=== PATIENT | female | born 1985 | race Caucasian/White ===

== ENCOUNTER → 2017-12-07 | Outpatient (REF) | payer OTHER ==
[2017-12-09 14:16] LABS: HPV HYBRID CAPTURE II Negative (Negative)
== END ==
LOC: M LAB REF 18:48
DX: Z01.419 Encounter for gynecological examination (general) (routine) without abnormal findings (principal)

== ENCOUNTER → 2018-12-06 | Outpatient (REF) | payer OTHER ==
[2018-12-06 17:12] LABS: URINE PREG TEST NEGATIVE (NEGATIVE)
== END ==
LOC: M SFHCPLAZ 15:53
PROVIDERS: ATTEND Nurse Practitioner Adult Health
DX: R19.4 Change in bowel habit (principal)

== ENCOUNTER → 2019-01-17 | Outpatient (REF) | payer OTHER ==
[2019-01-17 12:03] LABS: BASO % 0.4 % (0.0-1.0); EOS % 0.5 % (0.0-3.0); HEMATOCRIT 36.4 % (36.0-47.0); HEMOGLOBIN 12.6 g/dl (12.0-15.5); LYMPH # 1.8 10^3/uL (1.5-4.5); LYMPH % 21.9 % (24.0-44.0); MEAN CORPUSCULAR HEMOGLOBIN 30.5 pg (27.0-33.0); MEAN CORPUSCULAR HGB CONC 34.6 g/dl (32.0-36.5); MEAN CORPUSCULAR VOLUME 88.1 fl (80.0-96.0); MONO # 0.6 10^3/uL (0.0-0.8); MONO % 7.5 % (0.0-5.0); NEUTROPHILS # 5.7 10^3/uL (1.8-7.7); NEUTROPHILS % 69.3 % (36.0-66.0); PLATELET COUNT, AUTOMATED 265 10^3/uL (150-450); RED BLOOD COUNT 4.13 10^6/uL (4.00-5.40); WHITE BLOOD COUNT 8.3 10^3/uL (4.0-10.0)
[2019-01-17 12:52] LABS: HEPATITIS C VIRUS ABY INDEX 0.1 INDEX (<0.8)
[2019-01-17 12:53] LABS: HIV 1&2 SCREEN CENTAUR NEGATIVE (NEGATIVE); RUBELLA IgG QUALITATIVE IMMUNE (IMMUNE)
[2019-01-17 13:29] LABS: CHLAMYDIA DNA AMPLIFICATION NEGATIVE (NEGATIVE); GC DNA AMPLIFICATION NEGATIVE (NEGATIVE)
== END ==
LOC: M LABDRAW1 11:35
PROVIDERS: ATTEND Advanced Practice Midwife
DX: Z34.00 Encounter for supervision of normal first pregnancy, unspecified trimester (principal); Z3A.10 10 weeks gestation of pregnancy

== ENCOUNTER → 2019-05-02 | Outpatient (REF) | payer OTHER | LOC: M LAB REF 12:55 | PROVIDERS: ATTEND Advanced Practice Midwife | DX: Z34.02 Encounter for supervision of normal first pregnancy, second trimester (principal); Z3A.00 Weeks of gestation of pregnancy not specified ==

== ENCOUNTER → 2019-05-16 | Outpatient (CLI) | payer OTHER ==
[2019-05-16 09:48] LABS: BASO % 0.3 % (0.0-1.0); EOS # 0.1 10^3/uL (0.0-0.50); EOS % 0.4 % (0.0-3.0); HEMATOCRIT 32.8 % (36.0-47.0); LYMPH % 18.2 % (24.0-44.0); MEAN CORPUSCULAR HEMOGLOBIN 30.3 pg (27.0-33.0); MEAN CORPUSCULAR HGB CONC 33.5 g/dl (32.0-36.5); MEAN CORPUSCULAR VOLUME 90.4 fl (80.0-96.0); MONO # 0.7 10^3/uL (0.0-0.8); NEUTROPHILS # 8.2 10^3/uL (1.8-7.7); NEUTROPHILS % 73.9 % (36.0-66.0); PLATELET COUNT, AUTOMATED 241 10^3/uL (150-450); RED BLOOD COUNT 3.63 10^6/uL (4.00-5.40); WHITE BLOOD COUNT 11.2 10^3/uL (4.0-10.0)
== END ==
LOC: M SMT 07:54
PROVIDERS: ATTEND Advanced Practice Midwife
DX: Z34.82 Encounter for supervision of other normal pregnancy, second trimester (principal); Z3A.00 Weeks of gestation of pregnancy not specified

== ENCOUNTER → 2019-07-25 | Outpatient (CLI) | payer OTHER ==
[2019-07-25 17:53] LABS: HEMATOCRIT 35.2 % (36.0-47.0); HEMOGLOBIN 11.8 g/dl (12.0-15.5); MEAN CORPUSCULAR HEMOGLOBIN 30.7 pg (27.0-33.0); MEAN CORPUSCULAR HGB CONC 33.5 g/dl (32.0-36.5); MEAN CORPUSCULAR VOLUME 91.7 fl (80.0-96.0); PLATELET COUNT, AUTOMATED 213 10^3/uL (150-450); RED BLOOD COUNT 3.84 10^6/uL (4.00-5.40); WHITE BLOOD COUNT 14.5 10^3/uL (4.0-10.0)
[2019-07-25 18:15] LABS: ALT/SGPT 35 U/L (12-78); BILIRUBIN,TOTAL 0.1 MG/DL (0.2-1.0); GLOMERULAR FILTRATION RATE > 60.0 (>60); LDH LACTATE DEHYDROGENASE 174 U/L (84-246); TOTAL PROTEIN,RANDOM URINE 26.4 MG/DL (0.0-12.0); URIC ACID 3.3 MG/DL (2.6-6.0)
[2019-07-25 19:04] LABS: HIV 1&2 SCREEN CENTAUR NEGATIVE (NEGATIVE)
== END ==
LOC: M LAB 17:10
PROVIDERS: ATTEND Advanced Practice Midwife
DX: O16.3 Unspecified maternal hypertension, third trimester (principal); Z3A.00 Weeks of gestation of pregnancy not specified

== ENCOUNTER → 2019-07-25 | Outpatient (REF) | payer OTHER | LOC: M LAB REF 13:20 | PROVIDERS: ATTEND Advanced Practice Midwife | DX: Z36.85 Encounter for antenatal screening for Streptococcus B (principal) ==

== ENCOUNTER → 2019-07-28 | Outpatient (CLI) | payer OTHER ==
--- NOTE | 2019-07-29 08:29 | REP ---
Clinical: Growth evaluation Comparison: 03/16/2019 . Findings: Examination demonstrates a single live intrauterine in cephalic presentation. motion is identified by technologist. Placenta is noted anterior and grade I I without evidence for placenta previa or abruption. Amniotic fluid volume is normal. No evidence for nuchal cord. Gestational age by LMP 37 weeks 1 day with DEXTER 08/17/2019 . Gestational age by current measurements 35 weeks 4 days with DEXTER 08/28/2019 . FHR equals 136 beats per minute. BPD 9.1 cm 36 weeks 5 days HC 31.8 cm 35 weeks 5 days AC 33.5 cm 37 weeks 3 days FL 6.5 cm 33 weeks 5 days (less than 5th percentile) HL 5.9 cm 34 weeks 2 days ( less than 5th percentile) HC/AC ratio 0.95 Estimated weight 2888 grams ( 40th percentile). Amniotic fluid index: 18.0 cm Umbilical cord SD ratio: 2.24 Impression: 1. Single live advanced gestation in cephalic presentation. 2. Extremity measurements fall below 5th percentile. 3. Estimated weight remains within normal range. Electronically Signed by Andres Hollins MD 07/29/2019 08:20 A
== END ==
LOC: M RAD 16:50
PROVIDERS: ATTEND Advanced Practice Midwife
DX: O16.3 Unspecified maternal hypertension, third trimester (principal)

== ENCOUNTER 2019-09-08 03:28 | Emergency (ER) | payer OTHER ==
[~2019-09-08] VITALS: Ht 162.6 cm; Wt 84.4 kg
[~2019-09-08 03:28] MED LIST: PRENTAB9 PO
[2019-09-08] MEDS ORDERED: CVS50CAP PO (04:14)
[2019-09-08] MEDS ORDERED: BIOT1CAP2 PO (04:14)
[2019-09-08 04:21] LABS: BASO # 0.1 10^3/uL (0.0-0.2); BASO % 0.5 % (0.0-1.0); EOS # 0.2 10^3/uL (0.0-0.5); HEMATOCRIT 36.8 % (36.0-47.0); HEMOGLOBIN 12.1 g/dl (12.0-15.5); LYMPH # 2.6 10^3/uL (1.5-5.0); LYMPH % 26.4 % (24.0-44.0); MEAN CORPUSCULAR HGB CONC 32.9 g/dl (32.0-36.5); MEAN CORPUSCULAR VOLUME 88.2 fl (80.0-96.0); MONO # 0.7 10^3/uL (0.0-0.8); NEUTROPHILS # 6.1 10^3/uL (1.5-8.5); NEUTROPHILS % 63.4 % (36.0-66.0); PLATELET COUNT, AUTOMATED 275 10^3/uL (150-450); RED BLOOD COUNT 4.17 10^6/uL (4.00-5.40); WHITE BLOOD COUNT 9.7 10^3/uL (4.0-10.0)
[2019-09-08] MEDS ORDERED: GI COCKTAIL 50ML BTL(HYOSCYAMINE/MAALOX/LIDOCAINE VISCOUS)(1:3:1) PO ONE (04:45)
[2019-09-08 05:00] LABS: BLOOD UREA NITROGEN 13 MG/DL (7-18); CALCIUM LEVEL 8.9 MG/DL (8.5-10.1); CARBON DIOXIDE LEVEL 26 MEQ/L (21-32); CHLORIDE LEVEL 105 MEQ/L (98-107); CK-MB VALUE MASS < 1.0 NG/ML (<3.6); CPK CREATINE PHOSPHOKINASE 78 U/L (26-192); CREATININE FOR GFR 0.84 MG/DL (0.55-1.30); GLOMERULAR FILTRATION RATE > 60.0 (>60); GLUCOSE, FASTING 97 MG/DL (70-100); MB/CK RELATIVE INDEX 1.28 (< OR =4); POTASSIUM SERUM 3.4 MEQ/L (3.5-5.1); SODIUM LEVEL 143 MEQ/L (136-145); TROPONIN I < 0.02 NG/ML (< 0.10)
[2019-09-08 05:45] VITALS: BP 132/87
[2019-09-08] MEDS ORDERED: OMEP40CA97 PO (05:52)
[2019-09-08] MEDS ORDERED: OMEPRAZOLE 20 MG CAP PO ONE (07:00)
--- NOTE | 2019-09-08 08:05 | REP ---
Portable chest x-ray: Single view. History: Chest pain. Findings: EKG monitoring electrodes overlie the chest. The heart is not enlarged. Lungs are clear and well inflated. Pleural angles are sharp. Pulmonary vasculature is not increased. No significant bony abnormality is seen. Impression: Negative portable chest x-ray. Electronically Signed by Frankie Young MD 09/08/2019 07:57 A
--- NOTE | 2019-09-08 22:03 | ECGEPIP ---
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
== END 2019-09-08 06:22 | disposition home or self-care (01) ==
LOC: M ED 03:28
DX: K21.9 Gastro-esophageal reflux disease without esophagitis (principal); Z79.899 Other long term (current) drug therapy

== ENCOUNTER → 2019-09-19 | Outpatient (CLI) | payer OTHER ==
[~2019-09-19] MED LIST changes: +BIOT1CAP2 PO; +CVS50CAP PO; +OMEP40CA97 PO
--- NOTE | 2019-09-19 08:31 | REP ---
Clinical: Gastroesophageal reflux disease. Abdominal pain. Technique: Real time harris scale ultrasound examination using curved array transducer. Findings: Liver and pancreas are normal in contour, size, echogenicity without focal hepatic or pancreatic lesion identified. Gallbladder demonstrates multiple small mobile gallstones without wall thickening or pericholecystic fluid. No biliary ductal dilatation is appreciated and the common bile duct measures 4.0 mm diameter. Right kidney is normal in reniform shape without hydronephrosis and measures 11.0 x 4.8 x 4.7 cm. Abdominal aorta normal. No ascites. Impression: Cholelithiasis. Electronically Signed by Andres Hollins MD 09/19/2019 08:23 A
== END ==
LOC: M RAD 06:38
PROVIDERS: ATTEND Nurse Practitioner Adult Health
DX: K80.00 Calculus of gallbladder with acute cholecystitis without obstruction (principal)

== ENCOUNTER 2019-10-02 00:27 | Emergency (ER) | payer OTHER ==
[~2019-10-02] VITALS: Ht 157.5 cm; Wt 83.6 kg
[2019-10-02 01:14] LABS: BASO # 0.1 10^3/uL (0.0-0.2); BASO % 0.6 % (0.0-1.0); EOS # 0.1 10^3/uL (0.0-0.5); EOS % 1.1 % (0.0-3.0); HEMATOCRIT 39.7 % (36.0-47.0); HEMOGLOBIN 12.7 g/dl (12.0-15.5); LYMPH # 3.1 10^3/uL (1.5-5.0); MEAN CORPUSCULAR HEMOGLOBIN 28.2 pg (27.0-33.0); MONO # 0.8 10^3/uL (0.0-0.8); MONO % 7.9 % (0.0-5.0); NEUTROPHILS # 6.2 10^3/uL (1.5-8.5); NEUTROPHILS % 59.5 % (36.0-66.0); PLATELET COUNT, AUTOMATED 308 10^3/uL (150-450); RED BLOOD COUNT 4.51 10^6/uL (4.00-5.40); WHITE BLOOD COUNT 10.3 10^3/uL (4.0-10.0)
[2019-10-02 01:39] LABS: ALBUMIN 3.5 GM/DL (3.2-5.2); ALT/SGPT 47 U/L (12-78); BILIRUBIN,DIRECT < 0.1 MG/DL (0.0-0.2); BILIRUBIN,TOTAL 0.2 MG/DL (0.2-1.0); BLOOD UREA NITROGEN 14 MG/DL (7-18); CARBON DIOXIDE LEVEL 27 MEQ/L (21-32); CHLORIDE LEVEL 108 MEQ/L (98-107); CREATININE FOR GFR 0.85 MG/DL (0.55-1.30); GLOMERULAR FILTRATION RATE > 60.0 (>60); GLUCOSE, FASTING 85 MG/DL (70-100); LIPASE 227 U/L (73-393); POTASSIUM SERUM 4.1 MEQ/L (3.5-5.1); SODIUM LEVEL 143 MEQ/L (136-145); TOTAL PROTEIN 7.2 GM/DL (6.4-8.2)
[2019-10-02] MEDS ORDERED: MORPHINE 4 MG/ML 1ML VIAL/SYRINGE (J2270) IV ONE (01:45)
[2019-10-02] MEDS ORDERED: ONDANSETRON 4MG/2ML VIAL (J2405) As Ordered ONE (01:51)
[2019-10-02] MEDS ORDERED: ONDANSETRON 4MG/2ML VIAL (J2405) IV ONE (02:00)
--- NOTE | 2019-10-02 02:31 | REPVR ---
PROCEDURE INFORMATION: Exam: US Abdomen Limited, Right Upper Quadrant Exam date and time: 10/02/2019 2:13 AM Age: 34 years old Clinical indication: Abdominal pain; Epigastric; Additional info: Biliary eval TECHNIQUE: Imaging protocol: Real-time ultrasound of the abdomen with image documentation. Examination was focused on the right upper quadrant. COMPARISON: GALLBLADDER US 09/19/2019 6:43 AM FINDINGS: Liver: The liver demonstrates no focal defects. Gallbladder: The gallbladder demonstrates no wall thickening measuring 2 mm. There are small gallstones and a positive sono Martinez's sign. Common bile duct: The CBD measures 4 mm. Pancreas: The pancreas is normal. Right kidney: The right kidney measures 12.4 cm with no hydronephrosis. There is a right renal cyst measuring up to 14 mm. IMPRESSION: 1. Small gallstones and gallbladder with a positive sono Martinez's sign. There is no gallbladder wall thickening. 2. Otherwise negative right upper quadrant sonogram. Electronically signed by: Semaj Pedersen On 10/02/2019 02:30:38 AM
[2019-10-02 05:00] VITALS: BP 113/71
[2019-10-02] MEDS ORDERED: NORCO 5/325MG TABLET (BULK FOR ED) PO ONE (06:30)
[2019-10-02] MEDS ORDERED: HYDR-4571 PO (06:31)
== END 2019-10-02 06:41 | disposition home or self-care (01) ==
LOC: M ED 00:27
DX: K80.20 Calculus of gallbladder without cholecystitis without obstruction (principal); Z79.899 Other long term (current) drug therapy
CPT/HCPCS: 76705; 80048; 80076; 83690; 85025; 96374; 96375; 99284; J2270; J2405

== ENCOUNTER 2019-10-21 10:29 | Day surgery (SDC) | payer OTHER ==
[~2019-10-21] VITALS: Ht 160 cm; Wt 82.0 kg
[~2019-10-21 10:29] MED LIST changes: +AMPICILLIN SOD/SULBACTAM SOD 3 GM in D5W MINI-BAG PLUS 100 ML IV ONE; +HYDR-4571 PO; +LR 1,000 ML IV ONE
[2019-10-21] MEDS ORDERED: LIDOCAINE 1% SDV INJ 30 ML VIAL As Ordered ONE (11:41)
[2019-10-21] MEDS ORDERED: BUPIVACAINE HCL 0.25% 30 ML VIAL As Ordered ONE (11:41)
[2019-10-21] MEDS ORDERED: fentaNYL 250 MCG/5 ML INJECTION (J3010) As Ordered ONE (12:10)
[2019-10-21] MEDS ORDERED: ePHEDrine SULFATE 25 MG/5 ML(5MG/ML) SYRINGE As Ordered ONE (12:10)
[2019-10-21] MEDS ORDERED: ROCURONIUM BROMIDE 50 MG/5 ML VIAL As Ordered ONE (12:10)
[2019-10-21] MEDS ORDERED: dexameTHASONE 4 MG/ML 1ML VIAL (J1100) As Ordered ONE (12:10)
[2019-10-21] MEDS ORDERED: LIDOCAINE 2% INJ 100 MG/5 ML SDV (FOR ANES.) As Ordered ONE (12:10)
[2019-10-21] MEDS ORDERED: propofoL 200 MG/20 ML VIAL As Ordered ONE (12:10)
[2019-10-21] MEDS ORDERED: MIDAZOLAM INJ 2 MG/2 ML VIAL (J2250) As Ordered ONE (12:10)
[2019-10-21] MEDS ORDERED: KETOROLAC 60 MG/2 ML VIAL (J1885) As Ordered ONE (12:10)
[2019-10-21] MEDS ORDERED: SUGAMMADEX SODIUM 500 MG/5 ML VIAL (BRIDION) As Ordered ONE (12:10)
[2019-10-21] MEDS ORDERED: ONDANSETRON 4MG/2ML VIAL (J2405) As Ordered ONE (12:10)
[2019-10-21] MEDS ORDERED: DESFLURANE 240 ML INHALANT As Ordered ONE (12:25)
[2019-10-21] MEDS ORDERED: PERCOCET 5MG/325MG TAB As Ordered ONE (13:38)
[2019-10-21] MEDS ORDERED: PERCOCET 5MG/325MG TAB PO PRN (13:45)
[2019-10-21] MEDS ORDERED: LR 1,000 ML IV SCH (13:45)
[2019-10-21] MEDS ORDERED: NORCO, ANEXSIA 5/325MG TABLET (HYDROcodone/ACETAMINOPHEN) PO PRN (13:45)
[2019-10-21] MEDS ORDERED: ONDANSETRON 4MG/2ML VIAL (J2405) IV PRN ×2 (13:45)
[2019-10-21] MEDS ORDERED: METOCLOPRAMIDE INJ 10MG/2ML VIAL (J2765) IV PRN (13:45)
[2019-10-21] MEDS ORDERED: fentaNYL 100 MCG/2 ML INJECTION (J3010) IV PRN (13:45)
[2019-10-21] MEDS ORDERED: KETOROLAC 30 MG/ML VIAL (J1885) IV PRN (13:45)
[2019-10-21] MEDS ORDERED: HYDROMORPHONE HCL 0.5 MG/ 0.5 ML SYRINGE (J1170 PER 1) IV PRN (13:45)
[2019-10-21 14:52] VITALS: BP 125/69
--- NOTE | 2019-11-08 10:45 | ROOPDOC ---
[facility] Report Of Operation Report of Operation DATE OF PROCEDURE: 10/21/19 PREPROCEDURE DIAGNOSES: Cholelithiasis, biliary colic. POSTPROCEDURE DIAGNOSES: Cholelithiasis. PROCEDURE: Laparoscopic cholecystectomy. SURGEON: John Black MD CUSTOMER ACCOUNT MANAGER: ANESTHESIA: Gen. anesthesia. ESTIMATED BLOOD LOSS: Approximately 10 mL. COMPLICATIONS: None. SPECIMEN: Gallbladder PROCEDURE NOTE: Moderately distended but relatively thin-walled gallbladder, multiple stones and said the gallbladder free floating.. DESCRIPTION OF PROCEDURE: Patient was given a dose Unasyn 3 g IV preoperatively for prophylaxis. She was brought to the operating room, laid supine on the table, compression boots placed for DVT prophylaxis. General endotracheal anesthesia started. Her abdomen then prepped and draped in usual sterile fashion. Surgical timeout was performed prior to starting surgery. Entry into the abdomen done through an incision above the umbilicus. A Veress needle was inserted with a controlled fashion. CO2 insufflation started to pressure 15 mmHg. Using the same incision a 5 mm Visiport was placed under d irect vision laparoscope. The area underneath the insertion site was inspected and no injury found. She was then placed in steep reverse Trendelenburg. Her right side was tilted up to further expose the gallbladder. Under direct vision a 11 mm epigastric port and Two 5 mm working ports placed along the right subcostal line. Operative findings: Normal-appearing liver. Moderately distended relatively thin-walled gallbladder without evidence of acute inflammation. The fundus of the gallbladder was grasped and the gallbladder was elevated superiorly exposing the neck of the gallbladder. The infundibulum identified and retracted laterally. The peritoneum overlying the area was opened up and dissected free both anteriorly and posteriorly to help with retraction of the gallbladder. The hepatocystic triangle was approached and dissected using a [place] and instrument. The cystic duct was identified coming off from the neck of thr gallbladder; this was circumferentially dissected. The cystic artery was identified in its usual position medially behind a small lymph node of Calot. This was similarly circumferentially dissected off surrounding adipose tissue. We continued posterior dissection further taking down the fibroadipose tissue at the cystic plate clearing this off from the neck of the gallbladder proceeding proximally until a critical view of safety was achieved whereby only the previ ously identified duct and artery coursing through the neck the gallbladder. At this point the cystic artery was clipped 4 times and divided. After again checking her anatomy and verifying that the previously identified cystic duct, this was also clipped 4 times and divided. The rest of the gallbladder was then dissected free of the gallbladder bed using Bovie cautery. There was minimal bleeding at the lateral gallbladder attachments to the liver capsule this was easily controlled with Bovie cautery. The gallbladder was then placed in an Endo Catch bag and retrieved outside through the epigastric port site. After re- insufflation and inspected the clips and noted this to be in place. No further bleeding noted. No bile leakage noted. The abdomen was deflated all ports were removed. The epigastric fascial defect repaired with 0 Vicryl in a mattress fashion. Rest of the skin incisions closed with 4-0 Monocryl in subcuticular fashion. Steri-Strips and gauze dressings were placed, the wound. Patient was informed they awakened, extubated and brought to recovery room stable . JOHN BLACK MD Nov 08, 2019 10:45
== END 2019-10-21 14:52 | disposition home or self-care (01) ==
LOC: M SDC 10:29
PROVIDERS: ATTEND Surgery
DX: K80.10 Calculus of gallbladder with chronic cholecystitis without obstruction (principal); K58.9 Irritable bowel syndrome, unspecified; K92.9 Disease of digestive system, unspecified; I10 Essential (primary) hypertension; D64.9 Anemia, unspecified; Z91.018 Allergy to other foods; Z79.899 Other long term (current) drug therapy
CPT/HCPCS: 47562; 81025; 88304; J1100; J1885; J2250; J2405; J3010

== ENCOUNTER → 2020-06-25 | Outpatient (REF) | payer OTHER ==
[~2020-06-25] MED LIST changes: -AMPICILLIN SOD/SULBACTAM SOD 3 GM in D5W MINI-BAG PLUS 100 ML IV ONE; -LR 1,000 ML IV ONE
== END ==
LOC: M SFHCWAGY 13:06
PROVIDERS: ATTEND Advanced Practice Midwife
DX: Z12.4 Encounter for screening for malignant neoplasm of cervix (principal)
CPT/HCPCS: 87624; G0123

== ENCOUNTER → 2020-10-29 | Outpatient (REF) | payer OTHER ==
[2020-10-29 11:11] LABS: HEMATOCRIT 43.5 % (36.0-47.0); HEMOGLOBIN 14.3 g/dl (12.0-15.5); MEAN CORPUSCULAR HEMOGLOBIN 29.4 pg (27.0-33.0); MEAN CORPUSCULAR HGB CONC 32.9 g/dl (32.0-36.5); MEAN CORPUSCULAR VOLUME 89.3 fl (80.0-96.0); PLATELET COUNT, AUTOMATED 312 10^3/uL (150-450); RED BLOOD COUNT 4.87 10^6/uL (4.00-5.40); WHITE BLOOD COUNT 8.3 10^3/uL (4.0-10.0)
[2020-10-29 12:06] LABS: ALBUMIN 3.9 GM/DL (3.2-5.2); ALT/SGPT 15 U/L (12-78); BILIRUBIN,TOTAL 0.4 MG/DL (0.2-1.0); BLOOD UREA NITROGEN 15 MG/DL (7-18); CALCIUM LEVEL 9.9 MG/DL (8.5-10.1); CARBON DIOXIDE LEVEL 32 MEQ/L (21-32); CHLORIDE LEVEL 104 MEQ/L (98-107); CREATININE FOR GFR 0.75 MG/DL (0.55-1.30); FERRITIN 40 NG/ML (8-252); GLOMERULAR FILTRATION RATE > 60.0 (>60); GLUCOSE, FASTING 80 MG/DL (70-100); IRON (FE) 131 UG/DL (50-170); PERCENT SATURATION 37.9 % (13.2-45.0); POTASSIUM SERUM 5.2 MEQ/L (3.5-5.1); SODIUM LEVEL 140 MEQ/L (136-145); TOTAL IRON BINDING CAPACITY 346 UG/DL (250-450); TOTAL PROTEIN 7.4 GM/DL (6.4-8.2)
[2020-10-29 15:59] LABS: HEMOGLOBIN A1c 5.1 %
== END ==
LOC: M SFHCPLAZ 08:04
PROVIDERS: ATTEND Nurse Practitioner Adult Health
DX: R63.4 Abnormal weight loss (principal); R53.83 Other fatigue; Z83.3 Family history of diabetes mellitus

== ENCOUNTER → 2021-07-15 | Outpatient (REF) | payer OTHER ==
[~2021-07-15] MED LIST changes: +OMEP40CA4 PO; -OMEP40CA97 PO
== END ==
LOC: M SFHCWAGY 09:39
PROVIDERS: ATTEND Advanced Practice Midwife
DX: Z12.4 Encounter for screening for malignant neoplasm of cervix (principal)
CPT/HCPCS: 87624; G0123

== ENCOUNTER → 2021-08-09 | Outpatient (CLI) | payer OTHER ==
--- NOTE | 2021-08-09 13:50 | REP ---
INDICATION: BREAST LUMP IN FEMALE BILAT DIAGNOSTIC. COMPARISON: None. TECHNIQUE: MLO and CC views bilateral breasts performed with spot compression tomosynthesis imaging at the site of the palpable lump on each side. Focused bilateral breast ultrasound performed. FINDINGS: Mild scattered fibroglandular tissue is present bilaterally. There is no evidence of a mass or architectural distortion bilaterally. No suspicious clusters of microcalcifications are seen bilaterally. Focused ultrasound is performed bilaterally, in the upper inner right breast and upper inner left breast at the site of the reported palpable lumps. No cystic or solid nodule is seen in these regions. The Volpara volumetric breast density pattern is B. IMPRESSION: BIRADS/ACR category 1, negative. No mass or clustered microcalcifications bilaterally. There is no mammographic or sonographic evidence of a mass at the site of the reported palpable lump in the upper inner right breast or upper inner left breast. This patient's Tyrer-Cuzick lifetime breast cancer risk assessment score is 13.1%. This mammogram was interpreted with the aid of an FDA-approved computer-aided detection system. The patient states she had a clinical breast exam in June 2021. The patient letter being requested is M2. RECOMMENDATION: Recommend clinical correlation and follow-up, a negative mammogram and ultrasound should not deter biopsy if there is a clinically suspicious palpable mass present. <Electronically signed by Shawn Ponce > 08/09/21 [id number]
== END ==
LOC: M WHC 09:12
PROVIDERS: ATTEND Advanced Practice Midwife
DX: N63.0 Unspecified lump in unspecified breast (principal)
CPT/HCPCS: 76642; 77066; G0279

== ENCOUNTER → 2022-07-28 | Outpatient (REF) | payer OTHER | LOC: M SFHCWAGY 12:55 | PROVIDERS: ATTEND Advanced Practice Midwife | DX: Z12.4 Encounter for screening for malignant neoplasm of cervix (principal) ==

== ENCOUNTER → 2022-12-16 | Outpatient (REF) | payer OTHER ==
[2022-12-16 18:06] LABS: BASO % 0.4 % (0.0-1.0); EOS # 0.1 10^3/uL (0.0-0.5); EOS % 0.7 % (0.0-3.0); HEMATOCRIT 40.7 % (36.0-47.0); HEMOGLOBIN 13.4 g/dl (12.0-15.5); LYMPH # 3.5 10^3/uL (1.5-5.0); LYMPH % 37.6 % (24.0-44.0); MEAN CORPUSCULAR HGB CONC 32.9 g/dl (32.0-36.5); MEAN CORPUSCULAR VOLUME 91.1 fl (80.0-96.0); MONO # 0.6 10^3/uL (0.0-0.8); MONO % 6.6 % (2.0-8.0); NEUTROPHILS # 5.1 10^3/uL (1.5-8.5); NEUTROPHILS % 54.4 % (36.0-66.0); PLATELET COUNT, AUTOMATED 333 10^3/uL (150-450); RED BLOOD COUNT 4.47 10^6/uL (4.00-5.40); WHITE BLOOD COUNT 9.4 10^3/uL (4.0-10.0)
[2022-12-16 18:16] LABS: ALBUMIN 3.9 G/DL (3.2-5.2); ALKALINE PHOSPHATASE 66 U/L (46-116); ALT/SGPT 18 U/L (7.0-40); AST/SGOT 18 U/L (<34); BILIRUBIN,TOTAL 0.3 MG/DL (0.3-1.2); BLOOD UREA NITROGEN 15 MG/DL (9-23); CALCIUM LEVEL 9.3 MG/DL (8.5-10.1); CARBON DIOXIDE LEVEL 30 MMOL/L (20-31); CHLORIDE LEVEL 104 MMOL/L (98-107); CREATININE FOR GFR 0.72 MG/DL (0.55-1.30); FERRITIN 82.1 NG/ML (7.3-270.7); GLOMERULAR FILTRATION RATE > 60.0 (>60); GLUCOSE, FASTING 87 MG/DL (60-100); POTASSIUM SERUM 4.1 MMOL/L (3.5-5.1); SODIUM LEVEL 138 MMOL/L (136-145); THYROID STIMULATING HORMONE 2.833 uIU/ML (0.55-4.78); TOTAL 25(OH) VITAMIN D 32.2 NG/ML (20.0-100.0); VITAMIN B12 LEVEL 326 PG/ML (211-911)
== END ==
LOC: M PLALAB 17:17
PROVIDERS: ATTEND Physician Assistant
DX: R00.0 Tachycardia, unspecified (principal); R00.2 Palpitations; Z82.49 Family history of ischemic heart disease and other diseases of the circulatory system; R07.89 Other chest pain

== ENCOUNTER → 2023-12-08 | Outpatient (REF) | payer OTHER | LOC: M LAB REF 15:00 | PROVIDERS: ATTEND Advanced Practice Midwife | DX: Z12.4 Encounter for screening for malignant neoplasm of cervix (principal) | CPT/HCPCS: 87624; G0123 ==

== ENCOUNTER → 2024-04-05 | Outpatient (CLI) | payer OTHER ==
[2024-04-05 10:38] LABS: HEMATOCRIT 41.1 % (36.0-47.0); HEMOGLOBIN 13.7 g/dl (12.0-15.5); MEAN CORPUSCULAR HEMOGLOBIN 30.1 pg (27.0-33.0); MEAN CORPUSCULAR HGB CONC 33.3 g/dl (32.0-36.5); MEAN CORPUSCULAR VOLUME 90.3 fl (80.0-96.0); PLATELET COUNT, AUTOMATED 329 10^3/uL (150-450); RED BLOOD COUNT 4.55 10^6/uL (4.00-5.40); WHITE BLOOD COUNT 7.6 10^3/uL (4.0-10.0)
[2024-04-05 11:09] LABS: THYROID STIMULATING HORMONE 2.261 uIU/ML (0.55-4.78)
[2024-04-05 11:10] LABS: FREE T4 1.12 NG/DL (0.89-1.76)
[2024-04-05 11:16] LABS: ALBUMIN 3.7 G/DL (3.2-5.2); ALKALINE PHOSPHATASE 77 U/L (46-116); ALT/SGPT 21 U/L (7.0-40); AST/SGOT 11 U/L (<34); BILIRUBIN,TOTAL 0.4 MG/DL (0.3-1.2); BLOOD UREA NITROGEN 11 MG/DL (9-23); CALCIUM LEVEL 8.9 MG/DL (8.5-10.1); CARBON DIOXIDE LEVEL 26 MMOL/L (20-31); CHLORIDE LEVEL 106 MMOL/L (98-107); GLOMERULAR FILTRATION RATE > 60.0 (>60); GLUCOSE, FASTING 84 MG/DL (60-100); POTASSIUM SERUM 4.4 MMOL/L (3.5-5.1); SODIUM LEVEL 140 MMOL/L (136-145); TOTAL PROTEIN 6.7 G/DL (5.7-8.2)
[2024-04-05 12:10] LABS: HEMOGLOBIN A1c 4.8 % (4.0-6.0)
== END ==
LOC: M PLALAB 07:14
PROVIDERS: ATTEND Nurse Practitioner Adult Health
DX: Z00.00 Encounter for general adult medical examination without abnormal findings (principal); R00.2 Palpitations; R00.0 Tachycardia, unspecified; Z82.49 Family history of ischemic heart disease and other diseases of the circulatory system; Z83.3 Family history of diabetes mellitus

== ENCOUNTER → 2024-12-02 | Outpatient (CLI) | payer OTHER ==
[2024-12-02 16:25] LABS: BASO # 0.1 10^3/uL (0.0-0.2); BASO % 0.6 % (0.0-1.0); EOS % 0.3 % (0.0-3.0); HEMATOCRIT 37.5 % (36.0-47.0); HEMOGLOBIN 12.7 g/dl (12.0-15.5); LYMPH # 2.9 10^3/uL (1.5-5.0); LYMPH % 26.6 % (24.0-44.0); MEAN CORPUSCULAR HEMOGLOBIN 30.3 pg (27.0-33.0); MEAN CORPUSCULAR HGB CONC 33.9 g/dl (32.0-36.5); MEAN CORPUSCULAR VOLUME 89.5 fl (80.0-96.0); MONO # 0.8 10^3/uL (0.0-0.8); MONO % 7.3 % (2.0-8.0); NEUTROPHILS % 64.9 % (36.0-66.0); PLATELET COUNT, AUTOMATED 339 10^3/uL (150-450); RED BLOOD COUNT 4.19 10^6/uL (4.00-5.40); WHITE BLOOD COUNT 10.8 10^3/uL (4.0-10.0)
[2024-12-02 16:39] LABS: HEMOGLOBIN A1c 4.9 % (4.0-6.0)
[2024-12-02 16:49] LABS: ALBUMIN 3.7 G/DL (3.2-5.2); ALKALINE PHOSPHATASE 65 U/L (35-104); ALT/SGPT 18 U/L (7.0-40); AST/SGOT 10 U/L (<34); BILIRUBIN,TOTAL 0.2 MG/DL (0.3-1.2); BLOOD UREA NITROGEN 10 MG/DL (9-23); CALCIUM LEVEL 9.1 MG/DL (8.5-10.1); CARBON DIOXIDE LEVEL 29 MMOL/L (20-31); CHLORIDE LEVEL 106 MMOL/L (98-107); FOLATE > 24.0 NG/ML (>5.4); GLOMERULAR FILTRATION RATE > 60.0 (>60); GLUCOSE, FASTING 87 MG/DL (60-100); MAGNESIUM LEVEL 2.2 MG/DL (1.8-2.4); POTASSIUM SERUM 4.6 MMOL/L (3.5-5.1); SODIUM LEVEL 142 MMOL/L (136-145); THYROID STIMULATING HORMONE 2.595 uIU/ML (0.55-4.78); TOTAL 25(OH) VITAMIN D 32.2 NG/ML (20.0-100.0); TOTAL PROTEIN 7.1 G/DL (5.7-8.2)
[2024-12-02 16:50] LABS: FREE T4 1.05 NG/DL (0.89-1.76)
[2024-12-02 16:52] LABS: VITAMIN B12 LEVEL 239 PG/ML (211-911)
== END ==
LOC: M PLALAB 13:48
DX: R42 Dizziness and giddiness (principal)

== ENCOUNTER → 2024-12-13 | Outpatient (CLI) | payer OTHER | LOC: M WHC 17:18 | PROVIDERS: ATTEND Advanced Practice Midwife | DX: Z12.31 Encounter for screening mammogram for malignant neoplasm of breast (principal) ==

== ENCOUNTER → 2024-12-13 | Outpatient (REF) | payer OTHER ==
[2024-12-15 14:52] LABS: HPV APTIMA Not Detected (Not Detected)
== END ==
LOC: M LAB REF 17:27
PROVIDERS: ATTEND Advanced Practice Midwife
DX: Z12.4 Encounter for screening for malignant neoplasm of cervix (principal)
CPT/HCPCS: 87624; G0123

== ENCOUNTER → 2025-01-18 | Outpatient (REF) | payer OTHER | LOC: M LAB REF 16:40 | PROVIDERS: ATTEND Physician Assistant | DX: J03.90 Acute tonsillitis, unspecified (principal) ==

== ENCOUNTER → 2025-07-06 | Outpatient (CLI) | payer OTHER | LOC: M WHC 07:23 | PROVIDERS: ATTEND Nurse Practitioner Family | DX: N92.6 Irregular menstruation, unspecified (principal); R93.89 Abnormal findings on diagnostic imaging of other specified body structures ==

== ENCOUNTER 2025-08-09 07:27 | Day surgery (SDC) | payer OTHER ==
[~2025-08-09] VITALS: Ht 160 cm; Wt 77.2 kg
[~2025-08-09 07:27] MED LIST changes: +B-12100010 PO; +MONT-5 PO; +NORG1TAB40 PO; +OMEP10CASR PO; +VITA100093 PO
[2025-08-09] MEDS ORDERED: LIDOCAINE 2% 100 MG/5 ML SDV (FOR ANES.) As Ordered ONE (08:38)
[2025-08-09 09:33] VITALS: BP 107/60; O2SAT 100
== END 2025-08-09 09:46 | disposition home or self-care (01) ==
LOC: M OPP 07:27
PROVIDERS: ATTEND Surgery
DX: Z12.11 Encounter for screening for malignant neoplasm of colon (principal); D12.6 Benign neoplasm of colon, unspecified; Z80.0 Family history of malignant neoplasm of digestive organs; Z79.899 Other long term (current) drug therapy